=== PATIENT | male | born 1965 | race African-American/Black ===

== ENCOUNTER 2018-11-13 22:35 | Emergency (ER) | payer SELFPAY ==
--- NOTE | 2018-11-13 22:58 | NUR ---
PATIENT STATES HE FEELS BETTER AND JUST WANTS TO GO HOME. PATIENT WAS ADVISED TO COME BACK TO ER IF SYMPTOMS RETURN.
== END 2018-11-13 23:01 | disposition left against medical advice (07) ==
LOC: ER 22:37
DX: Z53.21 Procedure and treatment not carried out due to patient leaving prior to being seen by health care provider (principal)